=== PATIENT | female | born 1940 | race Caucasian/White ===

== ENCOUNTER 2017-10-18 06:18 | Day surgery (SDC) | payer MEDICARE, MEDICAID ==
[2017-10-09 09:56] VITALS: BMI 15.6
[2017-10-18] MEDS ORDERED: Etomidate 20 mg/10ml Inj IV ONE (08:10)
[2017-10-18] MEDS ORDERED: Propofol 10 mg/ml Inj (20 ML) ONE (08:10)
[2017-10-18] MEDS ORDERED: Sodium Chloride 0.9% 1,000 ML IV SCH (08:30)
[2017-10-18 09:53] VITALS: TEMP 97.4; O2SAT 100
[2017-10-18 10:58] VITALS: BP 144/64; PULSE 59; RESP 25
== END 2017-10-18 10:51 | disposition home or self-care (01) ==
LOC: ENDO 06:18
PROVIDERS: ATTEND Internal Medicine Gastroenterology
DX: K21.0 Gastro-esophageal reflux disease with esophagitis (principal); K29.50 Unspecified chronic gastritis without bleeding; R10.13 Epigastric pain
CPT/HCPCS: 43239; 82948; 88305; 88312; 88342; J2001; J2704; J7030; J7040